=== PATIENT | female | born 1960 | race Caucasian/White ===

== ENCOUNTER 2016-11-08 14:53 | Emergency (ER) | payer BC | END 2016-11-08 16:35 | disposition home or self-care (01) | DX: M70.31 Other bursitis of elbow, right elbow (principal); R03.0 Elevated blood-pressure reading, without diagnosis of hypertension ==

== ENCOUNTER 2016-12-15 07:03 | Day surgery (SDC) | payer BC ==
[~2016-12-15 07:03] MED LIST: CLINDAMYCIN 600 MG/50 ML 50 ML IV ONE
[2016-12-15] MEDS ORDERED: LACTATED RINGERS 1,000 ML IV ONE ×2 (07:47→09:15)
[2016-12-15] MEDS ORDERED: LIDOCAINE-MPF 2% 5 ML VIAL IM ONE (08:40)
[2016-12-15] MEDS ORDERED: DEXAMETHASONE 4 MG/ML VIAL IVP ONE (08:40)
[2016-12-15] MEDS ORDERED: MIDAZOLAM 2 MG/2 ML VIAL IVP ONE (08:40)
[2016-12-15] MEDS ORDERED: fentaNYL 100 MCG/2 ML VIAL IVP ONE (08:40)
[2016-12-15] MEDS ORDERED: PROPOFOL 200 MG/20 ML VIAL IVP ONE (08:40)
[2016-12-15] MEDS ORDERED: ONDANSETRON 4 MG/2 ML VIAL IVP ONE (08:40)
[2016-12-15] MEDS ORDERED: BUPIVACAINE 0.5%-EPI 1:200000 PF 30 ML VIAL SUBQ ONE (08:56)
[2016-12-15] MEDS: fentaNYL 100 MCG/2 ML VIAL ONE ×4 (09:40→10:00)
[2016-12-15] MEDS ORDERED: HYDROcod/ACETAM 5/325 MG TABLET ONE (10:19)
== END 2016-12-15 07:04 | disposition home or self-care (01) ==
PROC: 0MB30ZZ Excision of Right Elbow Bursa and Ligament, Open Approach (ICD-10-PCS; principal; 2016-12-15 08:30)
DX: M70.21 Olecranon bursitis, right elbow (principal); J44.9 Chronic obstructive pulmonary disease, unspecified; Z88.0 Allergy status to penicillin; F41.9 Anxiety disorder, unspecified; F32.9 Major depressive disorder, single episode, unspecified
CPT/HCPCS: 24105; A9270; J7120

== ENCOUNTER 2017-04-13 13:49 | Emergency (ER) | payer BC ==
--- NOTE | 2017-04-13 14:03 | ED Physician Documentation ---
PD HPI SYNCOPE - Stated complaint Stated Complaint: LOW BP, HIGH PULSE - Chief complaint Chief Complaint: Cardiac - History obtained from History obtained from: Patient - History of Present Illness Witnessed: Unwitnessed (did not have syncope, but just felt lightheaded and weak when standing up and walking the past few days. No noted change in meds; some less food intake (just not hungry). No fevers, URI, other infectious symptoms.) Timing - onset: How many days ago (3-5 of lightheaded and weakness) Preceding symptoms: Light headed, Generalized weakness. No: Headache, Chest pain, Abdominal pain, Nausea / vomiting Associated symptoms: No: Headache, Chest pain, Nausea / vomiting, Abdominal pain Contributing factors: Decreased PO intake. No: Recent med change, Noxious stimulae, Emotional upset, Exertion Injury occurred: No: Fell, Head injury Similar symptoms before: No diagnosis (has had this at times in the past, but not as much as the recent days.) Recently seen: Not recently seen Review of Systems Constitutional: denies: Fever, Chills, Myalgias Nose: denies: Rhinorrhea / runny nose, Congestion Throat: denies: Sore throat Cardiac: denies: Chest pain / pressure, Palpitations, Pedal edema, Calf pain Respiratory: denies: Dyspnea, Cough GI: denies: Abdominal Pain, Nausea, Vomiting, Diarrhea : denies: Dysuria, Frequency Skin: denies: Rash, Lesions Neurologic: reports: Generalized weakness. denies: Focal weakness, Numbness, Near syncope (but feels lightheaded when standing up and walking.) PD PAST MEDICAL HISTORY - Past Medical History Cardiovascular: Other Respiratory: Asthma, COPD, Emphysema, Other GI: Chronic constipation : Retention HEENT: Chronic vision loss, Chronic sinusitis, Dental implants Psych: Depression Musculoskeletal: Chronic back pain, Other - Past Surgical History General: Colonoscopy - Present Medications Home Medications: Ambulatory Orders Medication Instructions Recorded Confirmed Alfuzosin HCl [Alfuzosin HCl ER] 10 mg PO DAILY 11/08/16 04/13/17 Butalb/Acetaminophen/Caffeine 1 each PO DAILY PRN 11/08/16 04/13/17 [[id number]] Hydroxyzine Pamoate 50 mg PO DAILY 11/08/16 04/13/17 Ziprasidone HCl [Geodon] 60 mg PO DAILY PM 11/08/16 04/13/17 traZODone [Desyrel] 100 mg PO HS 11/08/16 04/13/17 Gabapentin 600 mg PO QID 12/09/16 04/13/17 Linaclotide [Linzess] 72 mcg PO DAILY PRN 12/09/16 04/13/17 - Allergies Allergies/Adverse Reactions: Allergies Allergy/AdvReac Type Severity Reaction Status Date / Time nickel Allergy Rash Verified 11/08/16 15:00 NSAIDS (Non-Steroidal Allergy Hives Verified 11/08/16 15:00 Anti-Inflamma Penicillins Allergy Unknown Verified 11/08/16 15:00 red dye Allergy Hives Verified 11/08/16 15:00 - Social History Does the pt smoke?: No Smoking Status: Never smoker PD ED PE NORMAL - Vitals Vital signs reviewed: Yes - General General: Alert and oriented X 3, No acute distress, Well developed/nourished - HEENT HEENT: Ears normal, Moist mucous membranes, Pharynx benign - Neck Neck: Supple, no meningeal sign, No adenopathy - Cardiac Cardiac: RRR, No murmur - Respiratory Respiratory: Clear bilaterally - Abdomen Abdomen: Soft, Non tender - Female Female : Deferred - Rectal Rectal: Deferred - Back Back: No CVA TTP - Derm Derm: Normal color, Warm and dry, No rash - Extremities Extremities: No tenderness to palpate, Normal ROM s pain, No edema, No calf tenderness / cord - Neuro Neuro: Alert and oriented X 3, No motor deficit, No sensory deficit, Normal speech - Psych Psych: Normal mood, Normal affect Results - Vitals Vitals: Vital Signs - 24 hr 04/13/17 04/13/17 04/13/17 13:54 15:34 16:59 Temperature 36.4 C L Heart Rate 107 H Heart Rate [ 93 75 Standing] Heart Rate [ 76 85 Supine] Respiratory 17 Rate Blood Pressure 113/82 H Blood Pressure 113/74 117/76 [Standing] Blood Pressure 110/73 113/78 [Supine] O2 Saturation 94 04/13/17 17:17 Temperature 36.1 C L Heart Rate 96 Heart Rate [ Standing] Heart Rate [ Supine] Respiratory 18 Rate Blood Pressure Blood Pressure [Standing] Blood Pressure [Supine] O2 Saturation 96 Oxygen O2 Source Room air - Labs Labs: Laboratory Tests 04/13/17 04/13/17 04/13/17 14:20 14:35 14:35 WBC 6.4 RBC 4.72 Hgb 13.9 Hct 40.8 MCV 86.5 MCH 29.4 MCHC 34.0 RDW 13.1 Plt Count 308 MPV 7.2 L Neut # 3.6 Lymph # 2.0 [place] # 0.6 Eos # 0.2 Baso # 0.0 Absolute Nucleated RBC 0.00 Nucleated RBCs 0.1 Sodium 131 L Potassium 3.9 Chloride 98 L Carbon Dioxide 25 Anion Gap 8.0 BUN < 5 L Creatinine 0.7 Estimated GFR (MDRD) 86 L Glucose 102 H Lactic Acid Calcium 9.1 Magnesium 2.0 Total Bilirubin 0.4 AST 18 ALT 15 Alkaline Phosphatase 66 Total Protein 7.1 Albumin 4.4 Globulin 2.7 Albumin/Globulin Ratio 1.6 Lipase 20 L TSH Urine Color YELLOW Urine Clarity CLEAR Urine pH 6.5 Ur Specific [place] 1.010 Urine Protein NEGATIVE Urine Glucose (UA) NEGATIVE Urine Ketones NEGATIVE Urine Occult Blood NEGATIVE Urine Nitrite NEGATIVE Urine Bilirubin NEGATIVE Urine Urobilinogen 0.2 (NORMAL) Ur Leukocyte Esterase SMALL H Urine RBC 0-5 Urine WBC 4-5 Urine WBC Clumps PRESENT Ur Squamous Epith Cells FEW Squamous Urine Bacteria Few Ur Microscopic Review INDICATED Urine Culture Comments INDICATED 04/13/17 04/13/17 14:35 14:35 WBC RBC Hgb Hct MCV MCH MCHC RDW Plt Count MPV Neut # Lymph # [place] # Eos # Baso # Absolute Nucleated RBC Nucleated RBCs Sodium Potassium Chloride Carbon Dioxide Anion Gap BUN Creatinine Estimated GFR (MDRD) Glucose Lactic Acid 0.7 Calcium Magnesium Total Bilirubin AST ALT Alkaline Phosphatase Total Protein Albumin Globulin Albumin/Globulin Ratio Lipase TSH 0.94 Urine Color Urine Clarity Urine pH Ur Specific [place] Urine Protein Urine Glucose (UA) Urine Ketones Urine Occult Blood Urine Nitrite Urine Bilirubin Urine Urobilinogen Ur Leukocyte Esterase Urine RBC Urine WBC Urine WBC Clumps Ur Squamous Epith Cells Urine Bacteria Ur Microscopic Review Urine Culture Comments PD MEDICAL DECISION MAKING - ED course Complexity details: reviewed results, re-evaluated patient (doing okay with IV fluids. ), considered differential, d/w patient (Metabolic okay and no signs of infections. Consider possible med effect for her postural symptoms. ) Departure - Departure Disposition: 01 Home, Self Care Clinical Impression: Postural lightheadedness Condition: Stable Record reviewed to determine appropriate education?: Yes Instructions: ED Hypotension Orthostatic Follow-Up: Avlia Serrano PA-C [Primary Care Provider] - Comments: Encourage regular fluids through the day and regular meals. Your basic labs are looking okay with electrolytes and no signs of infections. I would consider possible medication side effects and so initially tried taking the alfuzosin every other day and see if that improves her symptoms. If not might consider needing to decrease the gabapentin a little bit as both of these medications can cause lightheadedness and lower blood pressure with standing. Follow-up with your primary care in about a week, call tomorrow for an appointment. Return sooner if worsening. Discharge Date/Time: 04/13/17 17:18
[2017-04-13] MEDS ORDERED: SODIUM CHLORIDE 0.9% 1,000 ML IV ONE ×2 (14:21→15:50)
[2017-04-13 14:34] LABS: BILIRUBIN,URINE NEGATIVE (NEGATIVE); PH,URINE 6.5 PH (5.0-7.5)
[2017-04-13 14:35] LABS: UA w/ MICROSCOPIC CHARGE YES
[2017-04-13 14:51] LABS: BASOPHILS % (AUTO) 0.7 %; EOSINOPHILS # (AUTO) 0.2 10^3/uL (0.0-0.7); EOSINOPHILS % (AUTO) 2.6 %; HCT - HEMATOCRIT 40.8 % (37.0-47.0); HGB - HEMOGLOBIN 13.9 g/dL (12.0-16.0); LYMPHOCYTES % (AUTO) 31.6 %; MEAN CORPUSCULAR HEMOGLOBIN 29.4 pg (27.0-31.0); MEAN CORPUSCULAR VOLUME 86.5 fL (81.0-99.0); MEAN PLATELET VOLUME 7.2 fL (7.9-10.8); MONOCYTES # (AUTO) 0.6 10^3/uL (0.0-1.0); MONOCYTES % (AUTO) 9.5 %; NEUTROPHILS # (AUTO) 3.6 10^3/uL (1.5-6.6); NEUTROPHILS % (AUTO) 55.6 %; NUCLEATED RED BLOOD CELLS AUTO 0.1 /100WBC; RED BLOOD COUNT 4.72 10^6/uL (4.20-5.40); RED CELL DISTRIBUTION WIDTH 13.1 % (12.0-15.0); UNCORRECTED WHITE BLOOD COUNT 6.4 x10^3/uL; WHITE BLOOD COUNT 6.4 x10^3/uL (4.8-10.8)
[2017-04-13 14:51] LABS: UR CULTURE IF IND INDICATED
[2017-04-13 15:13] LABS: ALBUMIN/GLOBULIN RATIO 1.6 (1.0-2.2); BILIRUBIN,TOTAL 0.4 mg/dL (0.2-1.0); BUN - BLOOD UREA NITROGEN < 5 mg/dL (6-20); CALCIUM 9.1 mg/dL (8.5-10.3); CARBON DIOXIDE - CO2 25 mmol/L (21-32); CHLORIDE 98 mmol/L (101-111); CREATININE 0.7 mg/dL (0.4-1.0); GFR - MDRD 86 (>89); GLUCOSE 102 mg/dL (70-100); LIPASE 20 U/L (22-51); POTASSIUM 3.9 mmol/L (3.5-5.0); SODIUM 131 mmol/L (135-145); TOTAL PROTEIN 7.1 g/dL (6.7-8.2)
[2017-04-13 17:00] VITALS: BP 113/78
== END 2017-04-13 17:18 | disposition home or self-care (01) ==
LOC: ED 13:49
DX: R42 Dizziness and giddiness (principal)
CPT/HCPCS: 36415; 80053; 81001; 81003; 83605; 83690; 83735; 84443; 85025; 87077; 87086; 99283

== ENCOUNTER 2017-04-21 07:30 | Outpatient (CLI) | payer BC | END 2017-04-21 07:31 | LOC: LAB.R 07:30 | PROVIDERS: ATTEND Physician Assistant | DX: N39.0 Urinary tract infection, site not specified (principal) | CPT/HCPCS: 87086 ==

== ENCOUNTER 2017-07-19 08:00 | Outpatient (CLI) | payer BC ==
[2017-07-19 19:19] LABS: BASOPHILS # (AUTO) 0.1 10^3/uL (0.0-0.1); BASOPHILS % (AUTO) 1.8 %; EOSINOPHILS # (AUTO) 0.3 10^3/uL (0.0-0.7); EOSINOPHILS % (AUTO) 4.7 %; HCT - HEMATOCRIT 37.5 % (37.0-47.0); HGB - HEMOGLOBIN 12.7 g/dL (12.0-16.0); LYMPHOCYTES # (AUTO) 2.2 10^3/uL (1.5-3.5); LYMPHOCYTES % (AUTO) 36.7 %; MEAN CORPUSCULAR HEMOGLOBIN 29.6 pg (27.0-31.0); MEAN CORPUSCULAR HGB CONC 33.7 g/dL (32.0-36.0); MEAN CORPUSCULAR VOLUME 87.7 fL (81.0-99.0); MEAN PLATELET VOLUME 7.9 fL (7.9-10.8); MONOCYTES # (AUTO) 0.6 10^3/uL (0.0-1.0); MONOCYTES % (AUTO) 9.6 %; NEUTROPHILS # (AUTO) 2.8 10^3/uL (1.5-6.6); NEUTROPHILS % (AUTO) 47.2 %; NUCLEATED RED BLOOD CELLS AUTO 0.1 /100WBC; RED BLOOD COUNT 4.28 10^6/uL (4.20-5.40); RED CELL DISTRIBUTION WIDTH 14.6 % (12.0-15.0); UNCORRECTED WHITE BLOOD COUNT 5.9 x10^3/uL; WHITE BLOOD COUNT 5.9 x10^3/uL (4.8-10.8)
[2017-07-19 19:36] LABS: ALBUMIN/GLOBULIN RATIO 1.6 (1.0-2.2); BILIRUBIN,TOTAL 0.3 mg/dL (0.2-1.0); BUN - BLOOD UREA NITROGEN < 5 mg/dL (6-20); CALCIUM 8.5 mg/dL (8.5-10.3); CARBON DIOXIDE - CO2 25 mmol/L (21-32); CHLORIDE 95 mmol/L (101-111); CHOLESTEROL 280 mg/dL; CREATININE 0.7 mg/dL (0.4-1.0); GFR - MDRD 86 (>89); GLUCOSE 117 mg/dL (70-100); HDL CHOLESTEROL 70 mg/dL; LDL/HDL RATIO 2.8 (<4.4); POTASSIUM 4.3 mmol/L (3.5-5.0); SODIUM 125 mmol/L (135-145); TOTAL PROTEIN 6.7 g/dL (6.7-8.2); TRIGLYCERIDES 87 mg/dL; VLDL CHOLESTEROL 17 mg/dL
== END 2017-07-19 08:01 | disposition home or self-care (01) ==
LOC: LAB.N 08:00
PROVIDERS: ATTEND Nurse Practitioner Gerontology
DX: Z79.899 Other long term (current) drug therapy (principal)
CPT/HCPCS: 36415; 80053; 80061; 85025